=== PATIENT | female | born 1960 | race Caucasian/White ===

== ENCOUNTER 2021-09-13 18:24 | Emergency (ER) | payer OTHER ==
[~2021-09-13] VITALS: Ht 170.2 cm; Wt 73.5 kg
[~2021-09-13 18:24] MED LIST: ASPIR 8181 MG PO; CLONAZEPAM 0.50.5 M1 PER TUBE; NEURONTIN 300300 M1 PO; PRAVACHOL80 MG PO; PROPRANOLOL 1010 M1 PO; VITAMIN D400 UNIT PO; VOLTAREN GEL 1100 G2 TOP
[2021-09-13] MEDS ORDERED: SUPER THERAVIT1 EACH PO (18:53)
[2021-09-13] MEDS ORDERED: METFORMIN HCL500 M3 PO (18:53)
[2021-09-13 19:51] LABS: ABSOLUTE EOSINOPHILS 0.2 thou/uL (0.0-0.7); ABSOLUTE LYMPHOCYTES 1.1 thou/uL (0.8-5.3); ABSOLUTE MONOCYTES 0.6 thou/uL (0.0-1.2); ABSOLUTE NEUTROPHILS 4.4 thou/uL (1.6-8.1); BASOPHILS 0.3 %; EOSINOPHILS 2.8 %; HEMATOCRIT 36.9 % (37.0-47.0); HEMOGLOBIN 12.6 gm/dL (12.0-15.0); LYMPHOCYTES 17.9 %; MCH 30.2 pg (26.0-34.0); MCHC 34.1 g/dL (28.0-37.0); MCV 88.5 fL (80.0-100.0); MONOCYTES 9.2 %; MPV 7.3 fl. (7.2-11.1); NUCLEATED RBCS 0 /100WBC; PLATELET COUNT* 286 thou/uL (150-400); POLYS 69.8 %; RBC 4.16 mil/uL (4.20-5.00); RDW-CV 13.9 % (10.5-14.5); WBC 6.3 thou/uL (4.0-11.0)
[2021-09-13 20:01] LABS: CALCIUM 9.2 mg/dL (8.5-10.1); CREATININE 0.6 mg/dL (0.6-1.3); POTASSIUM 3.7 mmol/L (3.5-5.1)
[2021-09-13 20:05] LABS: ALBUMIN 3.5 g/dL (3.4-5.0); TOTAL BILIRUBIN 0.3 mg/dL (<0.1-1.0)
[2021-09-13] MEDS ORDERED: LAMISIL AT 1% C12 G1 TOP (21:02)
[2021-09-13] MEDS ORDERED: FLUOCINONI0.05 %/31 TOP (21:02)
[2021-09-13] MEDS ORDERED: MEDROLDOSEPACK PO (21:02)
[2021-09-13 21:14] VITALS: BP 128/72
== END 2021-09-13 21:14 | disposition home or self-care (01) ==
LOC: M.ERS 18:24
PROVIDERS: Personal Emergency Response Attendant
DX: B35.3 Tinea pedis (principal); E11.9 Type 2 diabetes mellitus without complications; M19.90 Unspecified osteoarthritis, unspecified site; Z79.891 Long term (current) use of opiate analgesic; Z79.1 Long term (current) use of non-steroidal anti-inflammatories (NSAID); Z79.899 Other long term (current) drug therapy